=== PATIENT | female | born 1960 | race African-American/Black ===

== ENCOUNTER 2018-11-21 00:37 | Inpatient (IN) | payer MEDICAID ==
[~2018-11-21] VITALS: Ht 185.4 cm; Wt 131.1 kg
[~2018-11-21 00:37] MED LIST: BENADRYL; CARI250T; DIAZEPAM; GABA300C; METO50TA95; RANITIDINE; RISPERDAL; SPIRIVA; XANAX
[2018-11-21] MEDS ORDERED: ONDANSETRON HCL 4MG/2ML INJ IV STA (01:57)
[2018-11-21] MEDS ORDERED: SODIUM CHLORIDE 0.9% 1,000 ML IV ONE (01:57)
[2018-11-21 02:37] LABS: BASOPHILS % 0.9 % (0.0-2.0); EOSINOPHILS % 2.8 % (0.0-5.0); HEMATOCRIT. 41.3 % (36.0-48.0); HEMOGLOBIN. 13.6 g/dL (12.0-16.0); LYMPHOCYTES % 58.1 % (20.0-50.0); MEAN CORPUSCULAR VOLUME 90.9 fL (81.0-99.0); MEAN PLATELET VOLUME 9.3 fl (7.4-10.4); MONOCYTES % 11.5 % (2.0-8.0); NEUTROPHILS % 26.7 % (40.0-76.0); PLATELET 122 x1000/uL (130-400); RED BLOOD CELL COUNT 4.54 mill/uL (4.2-5.4); RED CELL DISTRIBUTION WIDTH 14.5 % (11.6-14.6)
[2018-11-21 02:45] LABS: CHLORIDE 111 mEq/L (98-107)
[2018-11-21 02:48] LABS: *AMPHETAMINES SCREEN URINE NEGATIVE (NEGATIVE); *BARBITURATES SCREEN URINE NEGATIVE (NEGATIVE); *BENZODIAZEPINES SCREEN URINE PRESUMTIVE POSITIVE (NEGATIVE); *COCAINE SCREEN URINE NEGATIVE (NEGATIVE); METHADONE URINE SCREEN NEGATIVE (NEGATIVE)
[2018-11-21 02:49] LABS: CANNABINOID URINE SCREEN PRESUMTIVE POSITIVE (NEGATIVE); OPIATES URINE SCREEN NEGATIVE (NEGATIVE); PHENCYCLIDINE URINE SCREEN PRESUMTIVE POSITIVE (NEGATIVE)
[2018-11-21 02:50] LABS: ETHANOL BLOOD < 10 mg/dL
[2018-11-21] MEDS ORDERED: ONDANSETRON HCL 4MG/2ML INJ IV PRN (09:00)
[2018-11-21 10:00] VITALS: BP 177/97
[2018-11-21] MEDS: CLOPIDOGREL 75MG TABLET PO SCH (10:56)
[2018-11-21] MEDS: AMLODIPINE 5MG TABLET PO SCH ×2 (10:56→22:31)
[2018-11-21] MEDS: ACETAMINOPHEN 325MG TABLET PO PRN ×2 (10:57→22:31)
[2018-11-21] MEDS: ENOXAPARIN 30MG/0.3ML SYR SUBCUT SCH ×2 (10:58→19:58)
[2018-11-21 12:00] VITALS: BP 155/72
[2018-11-21] MEDS ORDERED: PNEUMOCOCCAL 23-VAL P-SAC VAC 0.5 ML IM ONE (13:30)
[2018-11-21] MEDS ORDERED: INFLUENZA VIRUS VACCINE(AFLURIA) 0.5ML SYR IM ONE (13:30)
[2018-11-21 16:00] VITALS: BP 149/72
[2018-11-21] MEDS ORDERED: IPRATROPIUM/ALBUTEROL 0.5-3(2.5)MG/3ML NEB HHN PRN (18:45)
[2018-11-21] MEDS: LOSARTAN POTASSIUM 50 MG TABLET PO SCH (19:57)
[2018-11-22] VITALS: BP 126/72
[2018-11-22 04:00] VITALS: BP 178/77
[2018-11-22 06:50] LABS: CHLORIDE 112 mEq/L (98-107)
[2018-11-22 07:06] LABS: BASOPHILS % 0.6 % (0.0-2.0); HEMATOCRIT. 35.5 % (36.0-48.0); HEMOGLOBIN. 11.9 g/dL (12.0-16.0); LYMPHOCYTES % 67.8 % (20.0-50.0); MEAN CORPUSCULAR HEMOGLOBIN 30.3 pg (28.0-32.0); MEAN CORPUSCULAR VOLUME 90.7 fL (81.0-99.0); MEAN PLATELET VOLUME 9.9 fl (7.4-10.4); NEUTROPHILS % 15.6 % (40.0-76.0); PLATELET 117 x1000/uL (130-400); RED BLOOD CELL COUNT 3.92 mill/uL (4.2-5.4); RED CELL DISTRIBUTION WIDTH 14.1 % (11.6-14.6)
[2018-11-22 08:00] VITALS: BP 135/75
[2018-11-22] MEDS: AMLODIPINE 5MG TABLET PO SCH (09:21)
[2018-11-22] MEDS: CLOPIDOGREL 75MG TABLET PO SCH (09:21)
[2018-11-22] MEDS: LOSARTAN POTASSIUM 50 MG TABLET PO SCH (09:21)
[2018-11-22] MEDS: ENOXAPARIN 30MG/0.3ML SYR SUBCUT SCH (09:22)
[2018-11-22 12:00] VITALS: BP 133/77
[2018-11-22] MEDS ORDERED: AMLO5TAB88 PO (13:11)
[2018-11-22] MEDS ORDERED: ATOR20TA65 MT (13:11)
[2018-11-22] MEDS ORDERED: LOSA50TA3 PO (13:11)
[2018-11-22] MEDS ORDERED: CLOP75TA15 PO (13:11)
[2018-11-22 16:00] VITALS: BP 100/57
[2018-11-22 16:04] LABS: CLARITY URINE CLOUDY (CLEAR); COLOR URINE YELLOW (YELLOW); KETONES URINE NEGATIVE (NEGATIVE); LEUKOCYTE ESTERASE URINE 3+ (NEGATIVE); NITRITE URINE POSITIVE (NEGATIVE); OCCULT BLOOD URINE 1+ (NEGATIVE); PROTEIN URINE NEGATIVE (NEGATIVE)
[2018-11-22] MEDS ORDERED: ENOXAPARIN 40MG/0.4ML SYR SUBCUT SCH (21:00)
== END 2018-11-22 21:03 | disposition home or self-care (01) | DRG 58 ==
LOC: ER 00:37 → 7WST 05:32 → EDBEDREQTM 05:35 → EDBEDREQ 05:35 → ENRESERV 08:29
PROVIDERS: ADMIT Internal Medicine; ATTEND Internal Medicine
DX: R47.01 Aphasia (principal); E87.8 Other disorders of electrolyte and fluid balance, not elsewhere classified; F12.90 Cannabis use, unspecified, uncomplicated; F17.210 Nicotine dependence, cigarettes, uncomplicated; F31.9 Bipolar disorder, unspecified; I10 Essential (primary) hypertension; J44.9 Chronic obstructive pulmonary disease, unspecified; K21.9 Gastro-esophageal reflux disease without esophagitis; Z90.49 Acquired absence of other specified parts of digestive tract; Z88.9 Allergy status to unspecified drugs, medicaments and biological substances; Z71.6 Tobacco abuse counseling
CPT/HCPCS: 36415; 71045; 80048; 80061; 80305; 80320; 81003; 84484; 87077; 87186; 93005; 97161; 99285; J1650; J2405; J7030; G0480